=== PATIENT | male | born 1995 | race Caucasian/White ===

== ENCOUNTER → 2023-03-22 | Outpatient (CLI) | payer OTHER ==
--- NOTE | 2023-03-24 06:33 | MR ---
EXAMINATION TYPE: MR knee LT wo con DATE OF EXAM: 03/22/2023 COMPARISON: NONE HISTORY: Left inner knee pain and swelling and locking for 4 weeks due to sports injury, history of s valerie 2017. Effusion, ACL sprain, possible recurrent tear TECHNIQUE: Multiplanar, multisequence images of the knee is performed without IV contrast. FINDINGS: MEDIAL MENISCUS: Slight truncated appearance posterior horn likely reflect surgical change LATERAL ME NISCUS: Anterior and posterior horns are intact without tear. CRUCIATE LIGAMENTS: The posterior cruciate ligament is intact. Some central wavy contour is noted. Th ere is artifact from prior anterior cruciate ligament surgery. Surgically repaired anterior cruciate ligament is felt intact. COLLATERAL LIGAMENTS: The medial collateral ligament and lateral collateral ligament complex are inta ct and unremarkable. EXTENSOR MECHANISM: Visualized quadriceps and patellar tendons are intact. EFFUSION: Moderate to large size suprapatellar joint effusion. POPLITEAL CYST: Fairly moderate-sized leaking popliteal/lu cyst. TRICOMPARTMENT SPACES: Tricompartmental joint spaces are preserved. No significant spurring is seen. CARTILAGE: Tricompartment articular cartilage is maintained. BONE MARROW SIGNAL: No focal abnormal marrow signal is appreciated. OTHER: No additional significant abnormality is appreciated. IMPRESSION: 1. Surgically repaired anterior cruciate ligament remains intact. No new meniscal or ligamentous tear clearly seen. 2. Moderate to large-sized suprapatellar joint effusion now present. 3. Moderate-sized leaking popliteal cyst.
== END | disposition home or self-care (01) ==
LOC: RADMRIMAIN 17:32
PROVIDERS: ATTEND Orthopaedic Surgery
DX: M25.462 Effusion, left knee (principal); M71.22 Synovial cyst of popliteal space [Baker], left knee; S83.512A Sprain of anterior cruciate ligament of left knee, initial encounter